=== PATIENT | female | born 1935 | race Caucasian/White ===

== ENCOUNTER → 2024-02-19 15:09 | Outpatient (BNVA) | payer MEDICARE, SELFPAY | PROVIDERS: Family Provider Nurse Practitioner Family; Referring Provider Registered Nurse; Visit Provider Orthopaedic Surgery | DX: S22.059A Unspecified fracture of T5-T6 vertebra, initial encounter for closed fracture (principal); W19.XXXA Unspecified fall, initial encounter | CPT/HCPCS: 72072; 99203 ==